=== PATIENT | female | born 1965 | race Caucasian/White ===

== ENCOUNTER 2020-08-27 07:19 | Observation (INO) | payer BC ==
[2020-08-20 15:23] LABS: BASOPHILS # (AUTO) 0.1 X10'3 (0-0.2); BASOPHILS % (AUTO) 1.1 % (0-1); EOSINOPHILS # (AUTO) 0.1 X10'3 (0-0.9); EOSINOPHILS % (AUTO) 0.8 % (0-6); LYMPHOCYTES # (AUTO) 2.3 X10'3 (1.1-4.8); LYMPHOCYTES % (AUTO) 21.1 % (21-51); MEAN CORPUSCULAR HEMOGLOBIN 32.3 PG (27.0-31.0); MEAN CORPUSCULAR HGB CONC 34.9 g/dL (33.0-36.5); MEAN CORPUSCULAR VOLUME 92.7 FL (78-98); MEAN PLATELET VOLUME 6.7 FL (7.4-10.4); MONOCYTES # (AUTO) 0.5 X10'3 (0-0.9); MONOCYTES % (AUTO) 4.8 % (2-12); NEUTROPHILS # (AUTO) 7.9 X10'3 (1.8-7.7); NEUTROPHILS % (AUTO) 72.2 % (42-75); PRE OP HEMATOCRIT 41.4 % (35.0-45.0); PRE OP HEMOGLOBIN 14.4 g/dL (12.0-16.0); PRE OP PLATELET COUNT 351 X10'3 (140-440); RED BLOOD COUNT 4.47 X10'6 (4.20-5.60); RED CELL DISTRIBUTION WIDTH 14.5 % (11.5-14.5)
[2020-08-20 15:40] LABS: ALBUMIN/GLOBULIN RATIO 1.1 (1.1-1.5); ALKALINE PHOSPHATASE 111 IU/L (46-116); BLOOD UREA NITROGEN 14 MG/DL (7-18); BUN/CREATININE RATIO 13.5 (6.6-38.0); CALCIUM 8.6 MG/DL (8.5-10.1); CHLORIDE 105 MMOL/L (99-107); CREATININE 1.04 MG/DL (0.40-0.90); PRE OP ALT 19 U/L (30-65); PRE OP ANION GAP 7 (8-16); PRE OP AST 14 U/L (10-37); PRE OP BILIRUB, TOTAL 0.8 MG/DL (0.0-1.0); PRE OP GLUCOSE 103 MG/DL (70-104); PRE OP POTASSIUM 4.2 MMOL/L (3.4-5.1); PRE OP SODIUM 140 MMOL/L (135-145); TOTAL CARBON DIOXIDE 28.4 MMOL/L (24-32); TOTAL PROTEIN 7.8 G/DL (6.4-8.2); eGFR 55 ML/MIN
[2020-08-27] VITALS (21 sets, daily range): BP systolic 128–178; BP diastolic 82–111
[~2020-08-27] VITALS: Ht 162.6 cm; Wt 93.9 kg
[~2020-08-27 07:19] MED LIST: NO HOME MEDS; ceFAZolin 2gm in dextrose, iso 50 ML IV ONE; famotidine 20mg tablet PO ONE; ringers solution, lacted 1,000 ML IV SCH
[2020-08-27] MEDS ORDERED: phenazopyridine 100mg tablet PO ONE (09:20)
[2020-08-27] MEDS ORDERED: BUPIVACAINE liposomal/PF 13.3 MG/ML vial IM ONE (09:25)
[2020-08-27] MEDS ORDERED: BUPIVAcaine/PF 2.5mg/ml (0.25%) 10ml vial ONE (09:25)
[2020-08-27] MEDS ORDERED: LIDOcaine 2% 5ml jelly ONE (09:33)
[2020-08-27] MEDS ORDERED: BUPIVAcaine 0.25% w/Epi /PF 30ml vial ONE ×2 (09:33→11:54)
[2020-08-27] MEDS ORDERED: midazolam 1 mg/ML 2ml injection ONE (09:34)
[2020-08-27] MEDS ORDERED: proCHLORperazine 10 MG/2 ml inj IV PRN (09:50)
[2020-08-27] MEDS ORDERED: labetalol 20mg/4ml (5mg/ml) syringe IV PRN (09:50)
[2020-08-27] MEDS ORDERED: morphine 2 MG/ML inj. syringe IV PRN (09:50)
[2020-08-27] MEDS ORDERED: meperidine/PF 25mg/ml syringe IV PRN ×3 (09:50)
[2020-08-27] MEDS ORDERED: ringers solution, lacted 1,000 ML IV SCH (09:50)
[2020-08-27] MEDS ORDERED: hydrALAZINE 20mg/ml inj. IV PRN (09:50)
[2020-08-27] MEDS ORDERED: ondansetron/PF 4mg/2ml inj IV PRN ×2 (09:50→12:35)
[2020-08-27] MEDS ORDERED: acetaminophen 1,000mg/100ml IV 100 ML IV PRN (09:50)
[2020-08-27] MEDS ORDERED: morphine 4 MG/ML inj SYRINge IV PRN (09:50)
[2020-08-27] MEDS ORDERED: sevoflurane 250ml liquid IH ONE (09:58)
[2020-08-27] MEDS ORDERED: acetaminophen 1,000mg/100ml IV 100 ML IV ONE (10:35)
[2020-08-27] MEDS ORDERED: fentaNYL /PF 50mcg/ml 5ml ampule ONE (10:35)
[2020-08-27] MEDS ORDERED: ondansetron/PF 4mg/2ml inj ONE (11:49)
[2020-08-27] MEDS ORDERED: rocuronium 10mg/ml inj IV ONE (11:49)
[2020-08-27] MEDS ORDERED: LIDOcaine 2% (20mg/ml) 5ml vial ONE (11:49)
[2020-08-27] MEDS ORDERED: propofol inj 20 ML IV ONE (11:49)
[2020-08-27] MEDS ORDERED: dexamethasone sod phosphate 4mg/ml inj. ONE (11:49)
[2020-08-27] MEDS ORDERED: neostigmine methylsulfate 1 MG/ML 10ml vial ONE (12:33)
[2020-08-27] MEDS ORDERED: glycopyrrolate 0.2mg/ml inj ONE (12:33)
[2020-08-27] MEDS ORDERED: HYDROcodone/acetaminophen 10/325mg tab PO PRN (12:35)
[2020-08-27] MEDS ORDERED: naloxone 0.4 mg/ml inj IV PRN (12:35)
[2020-08-27] MEDS: ringers solution, lacted 1,000 ML IV SCH ×2 (12:35→15:16)
[2020-08-27] MEDS ORDERED: diphenhydrAMINE 50 mg/ml inj IV PRN (12:35)
[2020-08-27] MEDS ORDERED: HYDROcodone/acetaminophen 5mg/325mg tablet PO PRN (12:35)
[2020-08-27] MEDS ORDERED: CADD PCA waste documentation MC PRN (12:35)
[2020-08-27] MEDS ORDERED: magnesium hydroxide 30ml (MOM) UD suspension PO PRN (12:35)
[2020-08-27] MEDS ORDERED: mag hydrox/Alum hydrox/simeth 30ml oral suspension PO PRN (12:35)
[2020-08-27] MEDS ORDERED: zolpidem 5mg tablet PO PRN (12:35)
--- NOTE | 2020-08-27 12:42 | NUR ---
Received from OR via [facility], accompanied by Anesthesiologist DR. PINO and report given by Anesthesiologist. PATIENT IS SLEEPING, SNORING, O2 WITH MASK ON 10L, PIV ON LEFT ARM, RUNNING LR AT 100ML/HR, LATERAL ISLAND DRESSING CDI ON LOWER ABDOMEN, NO DRAINAGE OR BLEEDING NOTED AT THIS TIME, RUSSELL CATHETER IS IN PLACE AND DRAINING DARK YELLOW URINE IN RUSSELL BAG. WILL MONITOR. Addendum: 08/27/20 at 1257 by Ehsan Park RN, RN Amended: Links added.
[2020-08-27] MEDS: HYDROmorphone/NS 1 mg/ml CADD 50 ML IV SCH ×7 (13:00→23:00)
--- NOTE | 2020-08-27 14:22 | NUR ---
ALL CRITERIA FOR TRANSFER TO THE FLOOR HAS BEEN ACHIEVED. REPORT GIVEN TO ROGERIO LEONARD AND ALL QUESTIONS ANSWERED, VSS. BED LOW 2 RAILS UP, CALL LIGHT PRESENT AND PATIENT HOOKED UP TO ALL LINES AND VSS. PATIENTS RNLONI PRESENT TO ACCEPT CARE. PATIENT'S RUSSELL BAG EMPTIED BEFORE TRANSFER, RUSSELL CATHETER IN PLACE, 475ML OF DARK YELLOW URINE OUTPUT, ISLAND DRESSING LATERAL ON LOWER ABD CDI, PIV 20G ON LEFT ARM RUNNING AT 100ML/HR, [facility] IS IN PLACE AT 1410, EDUCATION GIVEN TO PATIENT HOW TO USE [facility], PATIENT'S CARE TRANSFERRED AND ASSUMED BY LONI LEONARD Addendum: 08/27/20 at 1457 by Ehsan Park RN, RN Amended: Links added.
--- NOTE | 2020-08-27 14:27 | NUR ---
Received report from AISHA Mota. Awaiting patient arrival to room 349B.
--- NOTE | 2020-08-27 14:40 | NUR ---
Received patient to room 349B via bed accompanied by x2 RN. Patient alert and oriented and c/o 8/10 pain. Belongings placed in closet and bedside table. Educated patient use of CADD pump, room and call light. Call light placed within patient's reach. Bed is low and locked. Patient bella catheter draining to gravity with light orange urine, diana pad on with very scant amount of red drainage, dressing to lower abd cdi. Post op vitals started.
--- NOTE | 2020-08-27 15:45 | NUR ---
Patient at rest appears to be comfortable with eyes closed, respirations even and unlabored. BP is 169/88 64, 162/[address] Alfaro office at [phone] and spoke to Chloé. Chloé to send message to Dr. Alfaro and she also recommended to call OR to see if Dr. Alfaro still there. Dr. Alfaro is in OR "about to start his last case" per OR frontload driver. Will try again.
--- NOTE | 2020-08-27 17:10 | NUR ---
Patient BP now 189/94 HR 74, 165/111 81. Patient sleeping but when woke does c/o pain 12/30. Encouraged and educated patient use of CADD. Attempted to call Dr. Alfaro in OR. Spoke to AISHA Munoz who states Dr Alfaro in OR still and she will relay message regarding patient's BP. Will try again. Will continue to monitor.
--- NOTE | 2020-08-27 17:24 | NUR ---
BP now 169/88 hr 74. Patient appears to be sleeping comfortably with eyes closed, respirations even and unlabored. Will continue to monitor.
--- NOTE | 2020-08-27 17:31 | NUR ---
Received call back from Dr. Alfaro and new orders for Procardia XL 30mg TID hold for systolic BP less than 140. Will administer as ordered.
[2020-08-27] MEDS: NIFEdipine XL 30mg tablet PO SCH ×3 (17:38→23:20)
--- NOTE | 2020-08-27 18:30 | NUR ---
Problems reprioritized. Patient report given, questions answered & plan of care reviewed with AISHA Castañeda.
[2020-08-27] MEDS: docusate sod 100mg capsule PO SCH (22:03)
[2020-08-28] VITALS: BP 148/71
[2020-08-28] MEDS: HYDROmorphone/NS 1 mg/ml CADD 50 ML IV SCH ×6 (01:00→10:55)
[2020-08-28 04:00] VITALS: BP 159/83
[2020-08-28] MEDS: ringers solution, lacted 1,000 ML IV SCH (04:38)
--- NOTE | 2020-08-28 05:00 | NUR ---
F/c removed at this time. Pt able to walk to bathroom and back to bed only, pt nauseated. Addendum: 08/28/20 at 0529 by Maddy Chaves RN Amended: Links added.
[2020-08-28 06:32] LABS: BASOPHILS % (AUTO) 0.2 % (0-1); EOSINOPHILS % (AUTO) 0 % (0-6); HEMATOCRIT 38.4 % (35.0-45.0); LYMPHOCYTES # (AUTO) 1.1 X10'3 (1.1-4.8); LYMPHOCYTES % (AUTO) 7.7 % (21-51); MEAN CORPUSCULAR HEMOGLOBIN 31.3 PG (27.0-31.0); MEAN CORPUSCULAR HGB CONC 33.9 g/dL (33.0-36.5); MEAN CORPUSCULAR VOLUME 92.5 FL (78-98); MEAN PLATELET VOLUME 7.4 FL (7.4-10.4); MONOCYTES % (AUTO) 6.7 % (2-12); NEUTROPHILS # (AUTO) 12.4 X10'3 (1.8-7.7); NEUTROPHILS % (AUTO) 85.4 % (42-75); PLATELET COUNT 363 X10'3 (140-440); RED BLOOD COUNT 4.15 X10'6 (4.20-5.60); RED CELL DISTRIBUTION WIDTH 14.4 % (11.5-14.5); WHITE BLOOD COUNT 14.6 X10'3 (4.5-11.0)
[2020-08-28 07:30] VITALS: BP 116/65
[2020-08-28] MEDS: docusate sod 100mg capsule PO SCH (08:27)
[2020-08-28] MEDS: NIFEdipine XL 30mg tablet PO SCH (08:27)
[2020-08-28 12:00] VITALS: BP 110/53
--- NOTE | 2020-08-28 12:21 | NUR ---
PATIENT STABLE AND APPROPRIATE FOR DISCHARGE HOME. IV REMOVED, ALL BELONGINGS TAKEN FROM ROOM. ALL DISCHARGE INSTRUCTIONS AND EDUCATION GIVEN AND REVIEWED WITH PATIENT, ALL QUESTIONS ANSWERED. NEW PRESCRIPTIONS CALLED INTO PHARMACY BY DR. RUIZ.
== END 2020-08-28 12:18 | disposition home or self-care (01) ==
LOC: INTOOBSV 07:19 → PAS IN 07:19 → EDSTATUS 09:15 → SUR 3N 12:33
PROVIDERS: ADMIT Obstetrics & Gynecology; ATTEND Obstetrics & Gynecology
PROC: 0JQC0ZZ Repair Pelvic Region Subcutaneous Tissue and Fascia, Open Approach (ICD-10-PCS; 2020-08-27)
PROC: 0UT90ZZ Resection of Uterus, Open Approach (ICD-10-PCS; principal; 2020-08-27 09:58)
DX: N39.3 Stress incontinence (female) (male) (principal); Z20.828 Contact with and (suspected) exposure to other viral communicable diseases; N81.9 Female genital prolapse, unspecified; L98.9 Disorder of the skin and subcutaneous tissue, unspecified
CPT/HCPCS: 36415; 57250; 58150; 80053; 82948; 85025; 86885; 86900; 86901; 87081; 87635; 93005; 96361; 96365; 96366; 96375; A6402; C1758; C9290; G0378; J0131; J1100; J1170; J2001; J2175; J2250; J2405; J2704; J2710; J3010; J3490; J7120; 96374; A4215; A4355; A4618; A6253; A7000